=== PATIENT | female | born 1980 | race Caucasian/White ===

== ENCOUNTER → 2020-11-22 | Outpatient (CLI) | payer BC ==
--- NOTE | 2020-11-22 14:45 | MM ---
Reason for exam: screening (asymptomatic). Baseline mammogram. History: Took hormonal contraceptives for 1 year beginning at age 16. Physical Findings: Nurse did not find any significant physical abnormalities on exam. MG 3D Screening Mammo W/Cad Bilateral CC and MLO view(s) were taken. The breast tissue is heterogeneously dense. This may lower the sensitivity of mammography. There is no discrete abnormality. These results were verbally communicated with the patient and result sheet given to the patient on 11/22/20. ASSESSMENT: Negative, BI-RAD 1 RECOMMENDATION: Routine screening mammogram of both breasts in 1 year.
== END | disposition home or self-care (01) ==
LOC: RADMAMWWP 13:36
PROVIDERS: ATTEND Family Medicine
DX: Z12.31 Encounter for screening mammogram for malignant neoplasm of breast (principal)
CPT/HCPCS: 77063; 77067

== ENCOUNTER → 2022-03-21 | Outpatient (CLI) | payer OTHER ==
--- NOTE | 2022-03-21 22:38 | CT ---
EXAMINATION TYPE: CT wrist RT wo con DATE OF EXAM: 03/21/2022 COMPARISON: None available HISTORY: fx CT DLP: 131.3 mGycm Automated exposure control for dose reduction was used. TECHNIQUE: CT scan of the right wrist without IV contrast administration. 3-D reconstruction images w ere generated on an independent workstation and reviewed. FINDINGS: Acute minimally displaced fracture of the distal radial end extending to the radiocarpal articulation , seen along the lateral and palmar aspects. No bone fragment or significant angulation. A tiny bone fragment is seen at the ulnar styloid process, possibly representing sequela of avulsion fracture. Slightly negative ulnar variance. Questionable subtle nondisplaced fracture of the dorsal proximal aspect of the hamate bone. No other definite acute fracture line identified. Suspected wrist joint effusion IMPRESSION: Right wrist fractures as described above.
== END | disposition home or self-care (01) ==
LOC: RADCTMAIN 14:55
PROVIDERS: ATTEND Orthopaedic Surgery
DX: S52.591A Other fractures of lower end of right radius, initial encounter for closed fracture (principal); X58.XXXA Exposure to other specified factors, initial encounter